=== PATIENT | male | born 1965 | race Caucasian/White ===

== ENCOUNTER 2021-09-28 14:46 | Emergency (ER) | payer OTHER ==
--- NOTE | 2021-09-28 16:18 | ED ---
General Adult HPI - General Stated complaint: BAM Source: RN notes reviewed - History of Present Illness Initial comments: 56 yo Male presents to the emergency room for a chief complaint of COVID +. Patient had testing done [place]. He tested positive today. Symptoms just started today. Patient's is also positive. Patient is here to have antibody infusion. No shortness of breath. Patient has no other complaints at this time including shortness of breath, chest pain, abdominal pain, nausea or vomiting, headache, or visual changes. - Related Data Allergies Allergy/AdvReac Type Severity Reaction Status Date / Time No Known Allergies Allergy Verified 09/28/21 16:20 Review of Systems ROS Statement: Those systems with pertinent positive or pertinent negative responses have been documented in the HPI. ROS Other: All systems not noted in ROS Statement are negative. General Exam General appearance: alert, in no apparent distress Head exam: Present: atraumatic Eye exam: Present: normal appearance, PERRL, EOMI. Absent: scleral icterus, conjunctival injection ENT exam: Present: normal exam, mucous membranes moist Neck exam: Present: normal inspection, full ROM. Absent: tenderness Respiratory exam: Present: normal lung sounds bilaterally. Absent: respiratory distress, wheezes Cardiovascular Exam: Present: regular rate, normal rhythm, normal heart sounds Course Vital Signs 09/28/21 16:16 Temperature 98.0 F Pulse Rate 74 Respiratory 18 Rate Blood Pressure 127/85 O2 Sat by Pulse 100 Oximetry Medical Decision Making - Medical Decision Making Vitals are stable. Patient is well appearing. Patient does qualify for antibodies which is what he is here for. He does have proof of positive COVID- 19 status. Patient will be discharged home to follow up with primary care. Will return here for any worsening symptoms. Disposition Clinical Impression: COVID-19 Disposition: HOME SELF-CARE Condition: Good Instructions (If sedation given, give patient instructions): Coronavirus Disease 2019 (COVID-19) Additional Instructions: Take over the counter vitamins C, D, and zinc. Drink plenty of fluids. Take Motrin and Tylenol for pain or fever. Return to the emergency room for any worsening symptoms. Is patient prescribed a controlled substance at d/c from ED?: No Referrals: Gabino Hinojosa MD [Primary Care Provider] - 1-2 days Time of Disposition: 16:42
[2021-09-28] MEDS ORDERED: CASIRIVIMAB (REGN10933) (EUA) 600 MG, IMDEVIMAB (REGN10987) (EUA) 600 MG in SODIUM CHLO... IVPB ONE (17:00)
[2021-09-28] MEDS ORDERED: SODIUM CHLORIDE 0.9% 50 ML IVPB ONE (17:00)
[2021-09-28 19:50] VITALS: RESP 20
[2021-09-28 21:39] VITALS: BP 126/80; PULSE 78; TEMP 98.6
== END 2021-09-28 21:10 | disposition home or self-care (01) ==
LOC: EC 14:46
DX: U07.1 COVID-19 (principal)
CPT/HCPCS: 99283; Q0243